=== PATIENT | female | born 1940 | race Caucasian/White ===

== ENCOUNTER 2020-11-02 15:47 | Emergency (ER) | payer MEDICARE, BC ==
--- NOTE | 2020-11-02 16:13 | EDM.PDOC ---
ED HPI GENERAL MEDICAL PROBLEM - General Chief Complaint: Respiratory Problem Stated Complaint: COVID,SOB Time Seen by Provider: 11/02/20 16:00 Source of Information: Reports: Patient, RN Notes Reviewed - History of Present Illness INITIAL COMMENTS - FREE TEXT/NARRATIVE: 80 yr old female about days ago. Has cough, dyspnea, fever, chills, diarrhea. Has been watching sats at home registering relatively low, mid 80 range. Some chills, no definite fever. Has not been vomiting. had covid about 1 week ago. Has not been vaccinated. - Related Data Allergies Allergy/AdvReac Type Severity Reaction Status Date / Time No Known Allergies Allergy Verified 11/02/20 16:03 Home Meds: Home Meds Folic Acid 0.4 mg PO DAILY 11/02/20 [History] Magnesium Oxide 400 mg PO DAILY 11/02/20 [History] Multivitamin 1 each PO DAILY 11/02/20 [History] Ondansetron [Ondansetron ODT] 4 mg PO Q4H PRN 11/02/20 [History] Potassium Chloride 20 meq PO DAILY 11/02/20 [History] Prochlorperazine [Compazine] 5 mg PO Q6H PRN 11/02/20 [History] amLODIPine [Norvasc] 10 mg PO DAILY 11/02/20 [History] lisinopriL [Lisinopril] 10 mg PO DAILY 11/02/20 [History] Past Medical History HEENT History: Reports: Impaired Vision Cardiovascular History: Reports: Hypertension Musculoskeletal History: Reports: Arthritis, Back Pain, Chronic Endocrine/Metabolic History: Reports: Hypokalemia, Obesity/BMI 30+ - Infectious Disease History Infectious Disease History: Reports: Novel Coronavirus - Past Surgical History HEENT Surgical History: Reports: Tonsillectomy Social & Family History - Tobacco Use Tobacco Use Status *Q: Never Tobacco User Second Hand Smoke Exposure: No - Caffeine Use Caffeine Use: Reports: Coffee - Recreational Drug Use Recreational Drug Use: No ED ROS GENERAL - Review of Systems Review Of Systems: See Below Constitutional: Reports: Chills. Denies: Fever HEENT: Reports: Rhinitis. Denies: Throat Pain Respiratory: Reports: Shortness of Breath, Cough Cardiovascular: Denies: Chest Pain Endocrine: Reports: Fatigue GI/Abdominal: Reports: Diarrhea, Decreased Appetite, Nausea. Denies: Abdominal Pain Musculoskeletal: Reports: Other (generalized myalgias) Skin: Denies: Rash Neurological: Reports: Dizziness, Headache, Weakness (generalized) ED EXAM, GENERAL - Physical Exam Exam: See Below General Appearance: Alert, No Apparent Distress (at rest at time of exam on oxygen) Eye Exam: Bilateral Eye: PERRL Head: Atraumatic Neck: Supple Respiratory/Chest: No Respiratory Distress (on oxygen), Lungs Clear, Normal Breath Sounds. No: Rales, Rhonchi, Wheezing Cardiovascular: Regular Rate, Rhythm GI/Abdominal: Soft, Non-Tender Extremities: No: Pedal Edema, Leg Pain, Increased Warmth, Redness Neurological: Alert, Oriented, No Motor/Sensory Deficits Skin Exam: Warm, Dry, Normal Color, No Rash Course - Vital Signs Last Recorded V/S: Last Vital Signs Temp 98.9 F 11/02/20 16:00 Pulse 66 11/02/20 16:00 Resp 16 11/02/20 16:00 BP 152/65 H 11/02/20 16:00 Pulse Ox 94 L 11/02/20 16:17 - Orders/Labs/Meds Orders: Active Orders 24 hr Category Date Time Status Peripheral IV Care [RC] . DIRECTED Care 11/02/20 16:50 Active Chest 1V Frontal [CR] Stat Exams 11/02/20 16:14 Taken Sodium Chloride 0.9% [Normal Saline] 1,000 ml Med 11/02/20 17:00 Active IV ONETIME Sodium Chloride 0.9% [Saline Flush] Med 11/02/20 16:49 Active 10 ml FLUSH ASDIRECTED PRN Peripheral IV Insertion Adult [OM.PC] Stat Oth 11/02/20 16:49 Ordered Medication Orders Sodium Chloride (Normal Saline) 1,000 mls @ 999 mls/hr IV ONETIME JACQUE Last Admin: 11/02/20 17:25 Dose: 999 mls/hr Documented by: RHIANNON Sodium Chloride (Sodium Chloride 0.9% 10 Ml Syringe) 10 ml FLUSH ASDIRECTED PRN PRN Reason: Keep Vein Open Last Admin: 11/02/20 17:24 Dose: 10 ml Documented by: RHIANNON Labs: Laboratory Tests 11/02/20 11/02/20 11/02/20 Range/Units 17:07 17:15 17:15 WBC 3.31 L (3.98-10.04) K/mm3 RBC 4.54 (3.98-5.22) M/mm3 Hgb 14.1 (11.2-15.7) gm/dl Hct 41.4 (34.1-44.9) % MCV 91.2 (79.4-94.8) fl MCH 31.1 (25.6-32.2) pg MCHC 34.1 (32.2-35.5) g/dl RDW Std Deviation 46.9 H (36.4-46.3) fL Plt Count 112 L (182-369) K/mm3 MPV 11.6 (9.4-12.3) fl Neut % (Auto) 66.5 (34.0-71.1) % Lymph % (Auto) 18.7 L (19.3-51.7) % [place] % (Auto) 14.8 H (4.7-12.5) % Eos % (Auto) 0 L (0.7-5.8) Baso % (Auto) 0.0 L (0.1-1.2) % Neut # (Auto) 2.20 (1.56-6.13) K/mm3 Lymph # (Auto) 0.62 L (1.18-3.74) K/mm3 [place] # (Auto) 0.49 H (0.24-0.36) K/mm3 Eos # (Auto) 0.00 L (0.04-0.36) K/mm3 Baso # (Auto) 0.00 L (0.01-0.08) K/mm3 Puncture Site Lt radial ABG pH 7.43 (7.35-7.45) ABG pCO2 30.8 L (35.0-45.0) mmHg ABG pO2 63.0 L (80.0-100.0) mmHg ABG HCO3 20.1 L (22.0-26.0) meq/L ABG O2 Saturation 91.4 L (96.0-97.0) % ABG Base Excess -2.7 L (-2-2.0) Sergo Test Positive A-a Gradient 48 mmHg O2 Delivery Device Room air FiO2 21.00 (21.00-100.00) % Sodium (136-145) mEq/L Potassium (3.5-5.1) mEq/L Chloride (98-107) mEq/L Carbon Dioxide (21-32) mEq/L Anion Gap (5-15) BUN (7-18) mg/dL Creatinine (0.55-1.02) mg/dL Est Cr Clr Drug Dosing mL/min Estimated GFR (MDRD) (>60) mL/min BUN/Creatinine Ratio (14-18) Glucose (70-99) mg/dL Calcium (8.5-10.1) mg/dL Total Bilirubin (0.2-1.0) mg/dL AST (15-37) U/L ALT (14-59) U/L Alkaline Phosphatase (46-116) U/L C-Reactive Protein 0.3 (<1.0) mg/dL Total Protein (6.4-8.2) g/dl Albumin (3.4-5.0) g/dl Globulin gm/dL Albumin/Globulin Ratio (1-2) 11/02/20 Range/Units 17:15 WBC (3.98-10.04) K/mm3 RBC (3.98-5.22) M/mm3 Hgb (11.2-15.7) gm/dl Hct (34.1-44.9) % MCV (79.4-94.8) fl MCH (25.6-32.2) pg MCHC (32.2-35.5) g/dl RDW Std Deviation (36.4-46.3) fL Plt Count (182-369) K/mm3 MPV (9.4-12.3) fl Neut % (Auto) (34.0-71.1) % Lymph % (Auto) (19.3-51.7) % [place] % (Auto) (4.7-12.5) % Eos % (Auto) (0.7-5.8) Baso % (Auto) (0.1-1.2) % Neut # (Auto) (1.56-6.13) K/mm3 Lymph # (Auto) (1.18-3.74) K/mm3 [place] # (Auto) (0.24-0.36) K/mm3 Eos # (Auto) (0.04-0.36) K/mm3 Baso # (Auto) (0.01-0.08) K/mm3 Puncture Site ABG pH (7.35-7.45) ABG pCO2 (35.0-45.0) mmHg ABG pO2 (80.0-100.0) mmHg ABG HCO3 (22.0-26.0) meq/L ABG O2 Saturation (96.0-97.0) % ABG Base Excess (-2-2.0) Sergo Test A-a Gradient mmHg O2 Delivery Device FiO2 (21.00-100.00) % Sodium 134 L (136-145) mEq/L Potassium 3.5 (3.5-5.1) mEq/L Chloride 96 L (98-107) mEq/L Carbon Dioxide 26 (21-32) mEq/L Anion Gap 15.5 H (5-15) BUN 10 (7-18) mg/dL Creatinine 1.0 (0.55-1.02) mg/dL Est Cr Clr Drug Dosing 32.77 mL/min Estimated GFR (MDRD) 53 (>60) mL/min BUN/Creatinine Ratio 10.0 L (14-18) Glucose 130 H (70-99) mg/dL Calcium 8.1 L D (8.5-10.1) mg/dL Total Bilirubin 0.7 (0.2-1.0) mg/dL AST 32 (15-37) U/L ALT 28 (14-59) U/L Alkaline Phosphatase 48 (46-116) U/L C-Reactive Protein (<1.0) mg/dL Total Protein 6.8 (6.4-8.2) g/dl Albumin 3.6 (3.4-5.0) g/dl Globulin 3.2 gm/dL Albumin/Globulin Ratio 1.1 (1-2) Meds: Medications Generic Name Dose Route Start Last Admin Trade Name Freq PRN Reason Stop Dose Admin Sodium Chloride 1,000 mls @ 999 mls/hr 11/02/20 17:00 11/02/20 17:25 Normal Saline IV 999 mls/hr ONETIME JACQUE Administration Sodium Chloride 10 ml 11/02/20 16:49 11/02/20 17:24 Sodium Chloride 0.9% 10 Ml Syringe FLUSH 10 ml ASDIRECTED PRN Administration Keep Vein Open - Re-Assessments/Exams Free Text/Narrative Re-Assessment/Exam: 11/02/20 18:08 CXR shows very mild increased density right and l mid and lower lungs ramey suggestive for covid pneumonia with consideration of patient's current sx and hypoxia on arrival to ED. Documented sats on arrival 84 %, room air. sats did come up to 94 % with 2 L NC. 11/02/20 18:11. WBC 3,300. Chemistries relatively normal. The diarrhea and difficulty breathing with low sats are her major sx/problems. ABG's room air show a p02 of 63. With her covid I kathiont get her up to exercise her for exercise readings. She does not solidly qualify for hospital admission at this time. She will definitely benefit from home oxygen which gives her a reasonable chance to get through this without hospitalization. Have ordered Home oxygen. For now this is her chronic stable state until she rocovers from the covid. As noted sats were 84% on arrival to ED, remained in a a range of 82 to 88 % room air until oxygen applied. Departure - Departure Time of Disposition: 18:16 Disposition: Home, Self-Care 01 Condition: Serious Clinical Impression: Pneumonia due to COVID-19 virus, Hypoxia Diarrhea Qualifiers: Diarrhea type: infectious Qualified Code(s): A09 - Infectious gastroenteritis and colitis, unspecified - Discharge Information Referrals: PCP,None [Primary Care Provider] - Forms: ED Department Discharge Additional Instructions: Rest. Home oxygen at 2 L NC. Clear liquids and very bland diet as tolerated. Continue the medication given to you for diarrhea as needed. Avoid mild and dairy products for now. Follow up clinic in about 7 to 10 days for recheck. Call tomorrow AM for appointment. Return to ED as needed, especially for severe difficulty breathing even with the oxygen. Sepsis Event Note (ED) - Evaluation Sepsis Screening Result: No Definite Risk - Focused Exam Vital Signs: Vital Signs Temp Pulse Resp BP Pulse Ox Pulse Ox 11/02/20 16:17 94 L 11/02/20 16:00 98.9 F 66 16 152/65 H 84 L - My Orders Last 24 Hours: My Active Orders 11/02/20 16:14 Chest 1V Frontal [CR] Stat 11/02/20 16:49 Sodium Chloride 0.9% [Saline Flush] 10 ml FLUSH ASDIRECTED PRN Peripheral IV Insertion Adult [OM.PC] Stat 11/02/20 16:50 Peripheral IV Care [RC] . DIRECTED 11/02/20 17:00 Sodium Chloride 0.9% [Normal Saline] 1,000 ml IV ONETIME - Assessment/Plan Last 24 Hours: My Active Orders 11/02/20 16:14 Chest 1V Frontal [CR] Stat 11/02/20 16:49 Sodium Chloride 0.9% [Saline Flush] 10 ml FLUSH ASDIRECTED PRN Peripheral IV Insertion Adult [OM.PC] Stat 11/02/20 16:50 Peripheral IV Care [RC] . DIRECTED 11/02/20 17:00 Sodium Chloride 0.9% [Normal Saline] 1,000 ml IV ONETIME
[2020-11-02] MEDS ORDERED: Sodium Chloride 0.9% 10 ML Syringe FLUSH PRN (16:49)
[2020-11-02] MEDS ORDERED: Sodium Chloride 0.9% 1,000 ML IV SCH (17:00)
--- NOTE | 2020-11-03 06:51 | CR ---
Chest: Portable view of the chest was obtained. Comparison: Prior chest x-ray of 11/05/11. Heart shows a left ventricular configuration. Tortuous thoracic aorta is seen. Lungs are clear with no acute parenchymal change. Mild scoliosis is noted within the spine. Scattered degenerative change is also seen within the spine. Impression: 1. Findings as described above. 2. Nothing acute is identified on portable chest x-ray. Diagnostic code #2
== END 2020-11-02 19:25 | disposition home or self-care (01) ==
LOC: JD.ED 15:47
DX: U07.1 COVID-19 (principal); J12.82 Pneumonia due to coronavirus disease 2019; A09 Infectious gastroenteritis and colitis, unspecified; I10 Essential (primary) hypertension; E66.9 Obesity, unspecified; Z68.30 Body mass index [BMI] 30.0-30.9, adult
CPT/HCPCS: 36415; 36600; 71045; 80053; 82803; 85025; 86140; 99285; J7030